=== PATIENT | female | born 1990 | race Two or more races ===

== ENCOUNTER 2021-03-22 18:55 | Emergency (ER) | payer MEDICAID ==
[~2021-03-22] VITALS: Ht 157.5 cm; Wt 48.3 kg
[~2021-03-22 18:55] MED LIST: PREN1TAB27 PO
[2021-03-22 19:16] VITALS: BP 118/78
--- NOTE | 2021-03-22 20:04 | NUR ---
Patient/Caregiver given discharge instructions and they have confirmed that they understand the instructions. Patient ambulatory with steady gait. NAD, all questions answered appropriately, denies additional needs at this time. No personal belongings left in room after discharge.
== END 2021-03-22 20:17 | disposition home or self-care (01) ==
LOC: ED 19:05
DX: K08.89 Other specified disorders of teeth and supporting structures (principal)
CPT/HCPCS: 99283